=== PATIENT | female | born 2000 | race Two or more races ===

== ENCOUNTER 2020-01-30 01:20 | Inpatient (IN) | payer OTHER ==
[~2020-01-30] VITALS: Ht 160 cm; Wt 84.8 kg
[2020-01-30] MEDS ORDERED: PRENATAL TABLE1 EAC1 PO (02:34)
== END 2020-02-01 12:03 | disposition home or self-care (01) | DRG 807 ==
LOC: EDBD 01:20 → SURG-SUITE 01:20 → LDR 01:20 → OB/GYN 01:20 → SURG-SUITE 15:47
PROVIDERS: ADMIT Obstetrics & Gynecology; ATTEND Obstetrics & Gynecology
PROC: 10E0XZZ Delivery of Products of Conception, External Approach (ICD-10-PCS; principal; 2020-01-30)
PROC: 0KQM0ZZ Repair Perineum Muscle, Open Approach (ICD-10-PCS; 2020-01-30)
PROC: 4A1HXFZ Monitoring of Products of Conception, Cardiac Rhythm, External Approach (ICD-10-PCS; 2020-01-30)
PROC: 3E033VJ Introduction of Other Hormone into Peripheral Vein, Percutaneous Approach (ICD-10-PCS; 2020-01-30)
DX: O70.1 Second degree perineal laceration during delivery (principal); Z37.0 Single live birth; Z3A.40 40 weeks gestation of pregnancy; Z20.828 Contact with and (suspected) exposure to other viral communicable diseases